=== PATIENT | male | born 1935 | race African-American/Black ===

== ENCOUNTER 2018-06-21 14:10 | Emergency (ER) | payer MEDICARE, OTHER | END 2018-06-21 18:51 | disposition home or self-care (01) | LOC: ERS 14:10 | DX: S20.212A Contusion of left front wall of thorax, initial encounter (principal); S20.211A Contusion of right front wall of thorax, initial encounter; S40.012A Contusion of left shoulder, initial encounter; E03.9 Hypothyroidism, unspecified; I10 Essential (primary) hypertension; Z79.899 Other long term (current) drug therapy; W19.XXXA Unspecified fall, initial encounter | CPT/HCPCS: 99283 ==

== ENCOUNTER 2018-10-16 06:34 | Inpatient (IN) | payer MEDICARE, OTHER ==
[2018-10-16] MEDS ORDERED: Norepinephrine 8 MG/0.9% NS 250 ML ONE (06:55)
[2018-10-16] MEDS ORDERED: Sodium Bicarb 50 MEQ/50 ML VIAL ONE (07:06)
[2018-10-16] MEDS ORDERED: levETIRAcetam In NaCl (Iso-Os) 1,000 MG in Premix Bag 1 BAG IVPB SCH (07:15)
[2018-10-16] MEDS ORDERED: Magnesium 2 GM/50 ML BAG (IN WATER) ONE (07:20)
[2018-10-16 07:58] LABS: INR-International Normal Ratio 1.6; Prothrombin Time 19.2 SEC (12.0-14.7)
[2018-10-16 07:59] LABS: PTT 51.5 SEC (22.9-36.1)
[2018-10-16 08:04] LABS: ALT (SGPT) 162 U/L (8-55); AST (SGOT) 144 U/L (5-34); Albumin 2.1 g/dL (3.4-4.8); Alkaline Phosphatase 60 U/L (40-150); Anion Gap 21 mmol/L (10-20); BUN (Urea Nitrogen) 37 mg/dL (8.4-25.7); Bilirubin, Total 0.3 mg/dL (0.2-1.2); CK (CPK) 83 U/L (30-200); Calc. Creatinine Clearance 0 mL/min (70-130); Carbon Dioxide 18 mmol/L (23-31); Chloride 116 mmol/L (98-107); Estimated GFR-MDRD 66; Globulin 1.9 g/dL (2.4-3.5); Glucose 126 mg/dL (83-110); Lipase 34 U/L (8-78); Potassium 4.1 mmol/L (3.5-5.1); Sodium 151 mmol/L (136-145)
[2018-10-16 08:25] LABS: CKMB 3.6 ng/mL (0-6.6)
[2018-10-16 09:23] LABS: Hemoglobin 10.3 g/dL (14.0-18.0); Mean Corpuscular HGB CONC 31.8 g/dL (32.0-36.0); Mean Corpuscular Hemoglobin 32.8 pg (27.0-31.0); Mean Platelet Volume 8.4 fL (7.4-10.4); Platelet Count 103 thou/uL (130-400); RBC Distribution Width 12.4 % (11.5-14.5); Red Blood Cell (RBC) Count 3.15 mill/uL (4.70-6.10); White Blood Cell (WBC) Count 6.6 thou/uL (4.8-10.8)
[2018-10-16 09:31] LABS: Actual Bicarbonate (HCO3a) 20.6 mEq/L (22-28); Base Excess (BEa) -3.9 mEq/L (-2.0 to +3.0); CO2 Tension 35.4 mmHg (35.0-45.0); Calcium, Ionized 1.42 mmol/L (1.12-1.30); Carboxyhemoglobin (COHb) 0.1 gm% (0.0-3.0); O2 Tension (PaO2) 364.9 mmHg (> 60.0); Potassium - ABG Lab 3.86 mmol/L (3.70-5.30); Puncture Site RRA; pH, Arterial 7.38 (7.35-7.45)
[2018-10-16] MEDS ORDERED: Ondansetron ODT 4 MG TAB SL PRN (09:32)
[2018-10-16] MEDS ORDERED: Ondansetron PF 4 MG/2 ML Vial IVP PRN ×2 (09:32→13:00)
[2018-10-16] MEDS ORDERED: Norepinephrine 8 MG/250 ML BAG IVPB PRN (09:34)
--- NOTE | 2018-10-16 09:37 | RAD ---
CHEST 1 VIEW: HISTORY: Altered mental status. Dyspnea. COMPARISON: 05/14/2017. FINDINGS: Cardiac silhouette is magnified and enlarged. Pulmonary vasculature is engorged. Bilateral upper lo be infiltrate, right worse than left. The patient is slightly rotated rightward. Calcification with in the arterial structures. The tip of an endotracheal catheter overlies the thoracic inlet. No evidence of pneumothorax. Cardi ac monitor leads overlie the chest. IMPRESSION: 1. Bilateral upper lobe infiltrates, right greater than left. Clinical correlation regarding other signs and symptoms of right upper lobe pneumonitis is required. Please consider continued radiograph ic followup. 2. Endotracheal catheter is in good radiographic position. 3. Cardiomegaly. POS: [facility]
[2018-10-16 09:47] LABS: #Eosinphils 0.1 thou/uL (0.0-0.7); #Lymphocytes 1.8 thou/uL (1.20-3.40); #Monocytes 0.1 thou/uL (0.11-0.59); #Neutrophils 4.5 thou/uL (1.40-6.50); %Basophils 0.3 % (0.0-1.0); %Eosinophils 1.4 % (0.0-10.0); %Lymphocytes 27.8 % (21.0-51.0); %Monocytes 1.8 % (0.0-10.0); %Neutrophils 68.8 % (42.0-75.0); Band 1 % (5-11); Eosinophils 2 % (0-10); Lymphocytes 23 % (21-51); MDiff Complete? YES; Macrocytosis SLIGHT = 6-15 cells (100X) (0-5/hpf); Monocytes 5 % (0-10); Neutrophil 66 % (42-75); PLT Morphology Comment Appears Decreased; Polychromasia SLIGHT = 2-3 cells (100X) (0-2/hpf); RBC Morphology Normal; Reactive Lymphocytes 3 % (0-10)
[2018-10-16 09:55] VITALS: BMI 18.7
--- NOTE | 2018-10-16 11:00 | CT ---
NONCONTRAST CT HEAD: DATE: 10/16/2018. HISTORY: Altered mental status. Cardiac arrest and CPR in progress. The patient had a witnessed seizure this morning. COMPARISON: 07/26/2008. FINDINGS: There is no evidence of acute infarction, hemorrhage, mass effect, or midline shift. Aptel-white diff erentiation does persist. There is a low-density focus in the anterior aspect left basal ganglia lik olivia attributable to a lacunar infarction of indeterminate age. There is mild cerebral volume loss. The ventricular system is normal size, shape, and position. There are gas densities seen within the region of the cavernous sinus bilaterally which may be relate d to gas within venous structures due to placement of a peripheral intravenous catheter. However, th ere is also gas in the region of the unemployment benefits claims taker space on the right with focus of gas within the poste rior aspect of the left orbit. The exact etiology for gas densities in these regions is uncertain bu t could be related to gas within vessels due to placement of peripheral intravenous catheter possibly secondary to recent CPR. No obvious fractures are visualized to account for gas. Trace mucosal thickening is seen in the ethmoidal air cells. Mastoid air cells are clear. IMPRESSION: 1. No acute intracranial abnormality is demonstrated. 2. Scattered gas densities as described above which may be related to gas within the venous structur es due to placement of peripheral intravenous catheter. However, gas densities from barotrauma given recent CPR is a possibility or a combination of each of these entities. No fracture is seen. 3. The above findings were discussed with Dr. Wade in the emergency department on 10/16/2018 at 085 9 hours. CODE CR POS: [facility]
[2018-10-16] MEDS ORDERED: Acetaminophen 325 MG TAB PO PRN (13:00)
[2018-10-16] MEDS ORDERED: Acetaminophen 650 MG Suppository PR PRN (13:00)
[2018-10-16] MEDS ORDERED: Bisacodyl 10 MG SUPP PR PRN (13:00)
[2018-10-16] MEDS: Sodium Chloride 0.45% 1,000 ML IV SCH ×2 (14:33→15:06)
--- NOTE | 2018-10-16 14:37 | CON ---
DATE OF CONSULTATION: 10/16/2018 SERVICE: Pulmonary Medicine. REASON FOR CONSULTATION: ICU patient. HISTORY OF PRESENT ILLNESS: The patient is an 82-year-old male with past medical history significant for an extensive seizure history. He was in his usual state of health until he had an abrupt onset of seizure. As this is typical, the patient's put a cold rag on the patient's face. Typically, these things end pretty quickly. Ultimately, the seizure persisted. Once the seizure activity finally stopped, the patient was completely unresponsive. He was not breathing. She called Emergency Services, and when they got there, the patient was in a PEA arrest. Chest compressions were initiated. He was subsequently brought to the emergency department, where he lost pulse on at least 4 separate occasions. He had over an hour of chest compressions. They were about to call the code. When they discontinued interventions, he had a pulse. They watched him for over an hour and he seemed to strengthen up a little bit, so he was transitioned to the ICU. The patient's is very clear about the patient not wanting intubation and chest compressions. That being said, now this has occurred, she would like an additional 24 hours to see what happens. I think that is perfectly reasonable at this point. The patient cannot provide me any additional elements of the history, and before this event occurred, was told that he was in his usual state. PAST MEDICAL HISTORY: 1. Hypertension. 2. Dyslipidemia. 3. Hypothyroidism. 4. Chronic heart failure. 5. Seizure disorder. PAST SURGICAL HISTORY: Unknown. FAMILY HISTORY: Noncontributory. SOCIAL HISTORY: The patient previously denied drinking or smoking. Otherwise, it is unknown. ALLERGIES: NO KNOWN DRUG ALLERGIES. MEDICATIONS: List of his inpatient medications was reviewed. Couple of small updates was made. REVIEW OF SYSTEMS: This cannot be obtained as the patient is currently comatose. PHYSICAL EXAMINATION: VITAL SIGNS: Afebrile. Pulse 55, blood pressure 124/63, respirations 22, saturation 97% on 37% FiO2 and a PEEP of 5. HEENT: Normocephalic and atraumatic. Sclerae white. Conjunctivae pink. Oral mucosa is moist without lesions. LUNGS: Excellent air entry. Rhonchi and crackles are both present. There is no prolonged expiratory phase or wheezing appreciated. HEART: Normal rate and regular. ABDOMEN: Soft, nontender, and nondistended. Bowel sounds are positive. MUSCULOSKELETAL: No cyanosis or clubbing. There is no pitting in the bilateral lower extremities. NEUROLOGIC: His pupils are equal, round, and reactive. He has a left upward gaze preference. He does not attend. He does not follow any commands. He is overbreathing the ventilator comfortably. He does not have any cough or gag with deep suctioning. Noxious stimuli to the bilateral upper and lower extremities elicits essentially no response. There is no clonus. Babinski's is neutral bilaterally. He is demonstrating myoclonic jerking movements where he randomly opens up his eyes and his entire body contracts. LABORATORY DATA: WBC 6.6, hemoglobin 10.3, and platelets 103,000. INR 1.6. Creatinine 1.27, BUN 37, and anion gap 21. Sodium 151, AST and ALT are elevated. Troponin 0.076. BNP 1653. IMAGING STUDIES: Chest x-ray demonstrates endotracheal tube is in good position. Right upper lobe infiltrate is noted. Otherwise, I do not see any acute cardiopulmonary abnormality. No pneumothorax is noted. CT of the brain demonstrates no acute intracranial abnormality. Scattered gas is present in the carpenter assistant space. ASSESSMENT: 1. PEA arrest, status post prolonged CPR with spontaneous return of circulation. 2. Seizure. 3. Anoxic brain injury. 4. Chronic systolic heart failure. 5. Shock liver. 6. Hypernatremia. 7. App-QC-vuhuhwmje myocardial infarction. 8. Anemia. DISCUSSION AND PLAN: We will support the patient on mechanical ventilation overnight. If he fails to make any significant neurologic recovery, the patient's was very clear that the patient would not want CPR or any significant intubation. As such, we will likely be transitioning over to comfort care only in 24 to 48 hours. I will treat him for community-acquired pneumonia given his right upper lobe density. Pulmonary/Critical Care will continue to follow very closely. CRITICAL CARE TIME: 30 minutes. Job ID: [id number]
[2018-10-16] MEDS: Piperacillin/Tazobactam 2.25 GM in Sodium Chloride 0.9% 100 ML IVPB SCH ×2 (14:45→20:02)
--- NOTE | 2018-10-16 18:50 | HP ---
PRIMARY CARE PROVIDER: Unknown. CHIEF COMPLAINT: Pulseless electrical activity. HISTORY OF PRESENT ILLNESS: Mr. Villalobos is an 82-year-old gentleman who was seen at [facility] on October 16, 2018. Patient is currently intubated and mechanically ventilated, unable to provide any history. Collateral history was obtained from patient's family, review of medical records, and discussion with emergency room physician. Patient has a history of seizure disorder. He had seizure earlier today. The seizure did not resolve with the measures that usually stop the seizure. Following the seizure activity, patient went unresponsive. EMS was called and patient was found to be in pulseless electrical activity. Resuscitation was initiated and patient was brought to the emergency room. He continued to have CPR in the emergency room. The code was about to be stopped when patient had a pulse. He was referred to hospitalist service for admission to the hospital. I had a lengthy discussion with the patient's family. Patient's family members, including his reported that patient would not have wanted CPR or mechanical ventilation. She also reported that he would not have wanted vasopressors, but he is agreeable to continuing the vasopressors for now as long as the dose is not increased. REVIEW OF SYSTEMS: Could not be completed secondary to patient's nonverbal status. PAST MEDICAL HISTORY: 1. Hypertension. 2. Dyslipidemia. 3. Hypothyroidism. 4. Seizure disorder. 5. Congestive heart failure. SURGICAL HISTORY: Unknown. FAMILY HISTORY: Unknown. SOCIAL HISTORY: Family reports that patient does not use tobacco, alcohol, or recreational drug use. ALLERGIES: NO KNOWN DRUG ALLERGIES. CURRENT MEDICATIONS: The family does not know the names of his current medications: This will need to be reviewed. PHYSICAL EXAMINATION: GENERAL: Mr. Villalobos is intubated and mechanically ventilated. VITAL SIGNS: Blood pressure is 109/67, pulse 47, respiratory rate 22, oxygen saturation 100%, and temperature is 93.5 degrees Fahrenheit. EYES: No scleral icterus, no conjunctival pallor. ENT: Patient has endotracheal tube in place. RESPIRATORY: Accessory muscles of breathing are not active. Chest wall movements are symmetric bilaterally. Lung examination reveals right upper lobe bronchial breathing. CARDIOVASCULAR: S1 and S2 are heard, regular. Peripheral pulses palpable. No pericardial rub. ABDOMEN: Soft, nontender, bowel sounds heard. NEUROLOGIC: Full neurologic examination was not possible secondary to patient's noncooperation. Pupils are approximately 4 mm bilaterally, sluggishly reactive to light. No facial droop. No spontaneous limb movements at this time. Plantar reflexes equivocal, deep tendon reflexes 2+. MUSCULOSKELETAL: No spontaneous limb movements. LYMPHATIC: No cervical lymphadenopathy. SKIN: No rashes or subcutaneous nodules. PSYCHIATRIC: Unable to assess mood, affect, or orientation to person, place, or time. LABORATORY DATA: Mr. Villalobos's labs and investigations were reviewed. I reviewed his chest x-ray, which shows bilateral upper lobe infiltrates. I also reviewed his electrocardiogram, which shows wide QRS complexes. He has normal white count, macrocytic anemia with hemoglobin 10.3, thrombocytopenia with platelet count of 103,000. INR 1.6. Elevated sodium of 151, normal potassium, normal creatinine, elevated anion gap of 21, elevated AST of 144, and elevated ALT of 162. Indeterminate troponin-I of 0.076 and elevated BNP of 1653. Normal lipase. Arterial blood gases show pH 7.38, pCO2 is 35.4, and PO2 is 364.9. ASSESSMENT AND PLAN: Mr. Villalobos is an 82-year-old gentleman who was seen at [facility] on October 16, 2018. His problem list includes: 1. Cardiac arrest: Mr. Villalobos presented to the emergency room with cardiac arrest following a seizure. He had prolonged cardiopulmonary resuscitation with return of spontaneous circulation. He is being admitted to critical care unit for further management. 2. Pneumonia: Mr. Villalobos is presenting with right upper lobe pneumonia. We will treat him with antibiotics. 3. Hypertension: Mr. Villalobos was initially hypotensive, he has subsequently regained his blood pressure. We will continue to monitor vital signs in the critical care setting. 4. Seizure disorder: We will start the patient on seizure precautions. We will resume his home medications once clarified. Patient's family is aware that patient's prognosis is poor. They do not want any further attempts at the cardiopulmonary resuscitation or going up on vasopressor doses. We will honor their wishes accordingly. LEVEL OF RISK: High. LEVEL OF COMPLEXITY: High. Job ID: [id number]
[2018-10-16] MEDS ORDERED: Morphine 2 MG/ML SYRINGE SLOW IVP PRN (19:21)
[2018-10-16] MEDS ORDERED: Propofol BOLUS 1,000 MG/100 ML VIAL IV PRN (19:21)
[2018-10-16] MEDS ORDERED: DISCONTINUE PREVIOUS NARCOTIC PAIN MEDICATIONS AND BENZODIAZEPINES FS SCH (19:21)
[2018-10-16] MEDS ORDERED: Lorazepam 2 MG/ML VIAL SLOW IVP PRN (19:21)
[2018-10-16] MEDS ORDERED: fentaNYL Citrate/PF 2,000 MCG in Sodium Chloride 0.9% 60 ML IV SCH (19:21)
[2018-10-16] MEDS ORDERED: Propofol 1,000 MG/100 ML VIAL IV PRN (19:21)
[2018-10-16] MEDS ORDERED: Fentanyl BOLUS 250 ML IVPB PRN (19:21)
[2018-10-16] MEDS ORDERED: Famotidine/PF 20 mg/2ml Vial SLOW IVP SCH (21:00)
[2018-10-17] MEDS: Piperacillin/Tazobactam 2.25 GM in Sodium Chloride 0.9% 100 ML IVPB SCH ×4 (04:37→19:58)
[2018-10-17 05:02] LABS: #Lymphocytes 1.6 thou/uL (1.20-3.40); #Monocytes 1.2 thou/uL (0.11-0.59); #Neutrophils 10.2 thou/uL (1.40-6.50); %Eosinophils 0.2 % (0.0-10.0); %Lymphocytes 12.4 % (21.0-51.0); %Monocytes 9.4 % (0.0-10.0); %Neutrophils 77.9 % (42.0-75.0); Hemoglobin 10.3 g/dL (14.0-18.0); Mean Corpuscular HGB CONC 32.8 g/dL (32.0-36.0); Mean Corpuscular Hemoglobin 33.3 pg (27.0-31.0); Mean Platelet Volume 8.5 fL (7.4-10.4); Platelet Count 114 thou/uL (130-400); RBC Distribution Width 12.6 % (11.5-14.5); White Blood Cell (WBC) Count 13.1 thou/uL (4.8-10.8)
[2018-10-17 05:39] LABS: Anion Gap 17 mmol/L (10-20); BUN (Urea Nitrogen) 58 mg/dL (8.4-25.7); Calc. Creatinine Clearance 16 mL/min (70-130); Calcium 9.6 mg/dL (7.8-10.44); Carbon Dioxide 23 mmol/L (23-31); Chloride 114 mmol/L (98-107); Estimated GFR-MDRD 28; Glucose 129 mg/dL (83-110); Potassium 3.9 mmol/L (3.5-5.1); Sodium 150 mmol/L (136-145)
[2018-10-17] MEDS ORDERED: Sodium Chloride 0.65% Nasal 44 ML BOT EA NARE PRN (08:25)
[2018-10-17] MEDS ORDERED: Eucerin (Mineral Oil/Petrolatum,White) 30 gm Jar TOP PRN (08:25)
[2018-10-17] MEDS ORDERED: hydrALAZINE 20 MG/ML VIAL SLOW IVP PRN (08:25)
[2018-10-17] MEDS ORDERED: Artificial Tears 18 DROP/0.9 ML EA EYE PRN (08:25)
--- NOTE | 2018-10-17 08:50 | PRG ---
DATE OF SERVICE: This is 35 minutes critical care time. SUBJECTIVE: The patient remains intubated on mechanical ventilation. Neurologically, he will not wake up or follow commands. OBJECTIVE: HEENT: His eyes are deviated upward with poor pupillary response. Sclera injected. NECK: No adenopathy or JVD. LUNGS: Clear anteriorly. CARDIOVASCULAR: S1 and S2. Slightly tachycardic without murmur. ABDOMEN: Soft and nontender. EXTREMITIES: Without clubbing, cyanosis, or edema. LABORATORY DATA: White blood cell count 13.1, hematocrit 31.5, platelet count 114. Sodium 150, potassium 3.9, chloride 114, CO2 of 23, BUN 58, creatinine 2.6, glucose 129. ASSESSMENT: 1. Status post prolonged and multiple cardiopulmonary arrests with return of spontaneous circulation. 2. Prolonged seizure. 3. Probable anoxic brain injury. 4. Chronic systolic heart failure. 5. Acute kidney injury. 6. Shock liver. 7. Hypernatremia. 8. Non ST-segment myocardial infarction. PLAN: So far we have not seen any improvement in the patient's neurologic status. The patient's family states that he has a do not attempt resuscitation order in place. Their plan was to give this 24 hours and then consider withdrawal of care. In the meantime, I do not see any acute interventions that require being addressed at this time. In case they do decide to push along with care, I think his hypernatremia needs to be treated with more free water. He is continuing with antibiotics for aspiration coverage. Again, his prognosis is quite poor. Job ID: [id number]
[2018-10-17] MEDS: Famotidine/PF 20 mg/2ml Vial SLOW IVP SCH (08:52)
[2018-10-17] MEDS: Sodium Chloride 0.45% 1,000 ML IV SCH (09:22)
--- NOTE | 2018-10-17 11:34 | PDOC.PN ---
- Subjective Encounter Start Date: 10/17/18 Encounter Start Time: 08:30 -: old records requested/rev Patient seen and examined. No overnight events pt is on vent, unresponsive, bedside - Objective Resuscitation Status - Order Detail: 10/16/18 10:05 Resuscitation Status Routine Resuscitation Status: DNAR: NO Resuscitation Discussed with: DANIEL Reviewed: Yes Vital Signs & Weight: Vital Signs (12 hours) Temp Pulse Resp BP Pulse Ox 10/17/18 10:24 103 H 150/76 H 10/17/18 10:00 14 10/17/18 08:00 97.6 F 13 100 10/17/18 06:40 102 H 148/72 H 10/17/18 06:00 13 10/17/18 04:00 99.4 F 13 10/17/18 03:03 79 10/17/18 02:00 20 10/17/18 00:00 99.9 F H 18 Weight Weight 115 lb 14.4 oz Most Recent Monitor Data Heart Rate from ECG 105 NIBP 151/73 NIBP BP-Mean 99 Respiration from ECG 18 SpO2 100 I&O: 10/16/18 10/17/18 10/18/18 06:59 06:59 06:59 Intake Total 1202 Output Total 415 10 Balance 787 -10 Result Diagrams: 10/17/18 04:55 10/17/18 04:55 Radiology Reviewed by me: Yes (CT brain and chest xray reviwed) EKG Reviewed by me: Yes (nsr) Phys Exam - Physical Examination Constitutional: NAD on vent Neck: no JVD, supple Respiratory: no wheezing, no rales, no rhonchi Cardiovascular: RRR, no significant murmur, no rub Gastrointestinal: soft, no distention, positive bowel sounds Musculoskeletal: no edema, pulses present unresponsive Lymphatic: no nodes Deviation from normal: unresponsive Skin: no rash, normal turgor Dx/Plan (1) PEA (Pulseless electrical activity) Code(s): I46.9 - CARDIAC ARREST, CAUSE UNSPECIFIED Status: Acute (2) Cardiac arrest Code(s): I46.9 - CARDIAC ARREST, CAUSE UNSPECIFIED Status: Acute (3) Anoxic brain injury Status: Acute (4) Acute kidney failure Status: Acute (5) NSTEMI (non-ST elevated myocardial infarction) Code(s): I21.4 - NON-ST ELEVATION (NSTEMI) MYOCARDIAL INFARCTION Status: Acute (6) Shock liver Code(s): K72.00 - ACUTE AND SUBACUTE HEPATIC FAILURE WITHOUT COMA Status: Acute (7) Hypernatremia Code(s): E87.0 - HYPEROSMOLALITY AND HYPERNATREMIA Status: Acute (8) HTN (hypertension) Code(s): I10 - ESSENTIAL (PRIMARY) HYPERTENSION Status: Chronic (9) Hyperlipidemia Code(s): E78.5 - HYPERLIPIDEMIA, UNSPECIFIED Status: Chronic (10) Hypothyroidism Code(s): E03.9 - HYPOTHYROIDISM, UNSPECIFIED Status: Chronic (11) Macrocytic anemia Code(s): D53.9 - NUTRITIONAL ANEMIA, UNSPECIFIED Status: Chronic (12) Seizure disorder Code(s): G40.909 - EPILEPSY, UNSP, NOT INTRACTABLE, WITHOUT STATUS EPILEPTICUS Status: Chronic (13) Chronic systolic heart failure, ACC/AHA stage C Code(s): I50.22 - CHRONIC SYSTOLIC (CONGESTIVE) HEART FAILURE Status: Acute - Plan cont current plan of care, plan discussed w/ family * spoke with and discussed with her about goal of care and she does not want any aggressive intervention * she will decide about withdrawal of care in next 24-48 hours * she has decided about DNR * medication reviewed as below * symptomatic treatment. * palliative care on case * meanwhile continue supportive care * his prognosis is very poor Review of Systems - Review of Systems Other: unable to review as pt is unresponsive - Medications/Allergies Allergies/Adverse Reactions: Allergies Allergy/AdvReac Type Severity Reaction Status Date / Time No Known Allergies Allergy Verified 05/14/17 22:39 Medications: Current Medications Acetaminophen (Tylenol) 650 mg PO Q4H PRN PRN Reason: Headache/Fever/Mild Pain (1-3) Last Admin: 10/17/18 05:13 Dose: 650 mg Acetaminophen (Tylenol) 650 mg [place] Q4H PRN PRN Reason: Headache/Fever/Mild Pain (1-3) Artificial Tears (Tears Naturale) 2 drop EA EYE PRN PRN PRN Reason: Dry Eyes Bisacodyl (Dulcolax) 10 mg [place] DAILYPRN PRN PRN Reason: Constipation Famotidine (Pepcid) 20 mg SLOW IVP DAILY [facility] Last Admin: 10/17/18 08:52 Dose: 20 mg Hydralazine HCl (Apresoline) 10 mg SLOW IVP Q4H PRN PRN Reason: SBP > 180 and HR < 70 Piperacillin Sod/Tazobactam (Sod 2.25 gm/ Sodium Chloride) 100 mls @ 200 mls/ hr IVPB 0400,0800,1400,2000 [facility] Last Admin: 10/17/18 08:51 Dose: 100 mls Fentanyl Citrate 2,000 mcg/ (Sodium Chloride) 100 mls @ 0 mls/hr IV INF [facility]; Protocol Stop: 11/15/18 19:21 Fentanyl Citrate (Fentanyl Bolus) 250 mls @ 0 mls/hr IVPB PRN PRN PRN Reason: Breakthrough pain/agitation Stop: 11/15/18 19:21 Sodium Chloride (1/2 Normal Saline) 1,000 mls @ 75 mls/hr IV .[id number] [facility] Last Admin: 10/17/18 09:22 Dose: 1,000 mls Lorazepam (Ativan) 2 mg SLOW IVP Q1H PRN PRN Reason: Breakthrough agitation Stop: 11/15/18 19:21 Last Admin: 10/16/18 19:58 Dose: 2 mg Mineral Oil/White Petrolatum (Eucerin Cream) 0 gm TOP BIDPRN PRN PRN Reason: Dry Skin Morphine Sulfate (Morphine) 2 mg SLOW IVP Q1H PRN PRN Reason: BREAKTHROUGH PAIN/Agitation Stop: 11/15/18 19:21 Discontinue Previous Narcotic Pain Medications And Benzodiazepines 1 each FS .ONE [facility] Stop: 11/15/18 19:21 Ondansetron HCl (Zofran) 4 mg IVP Q6H PRN PRN Reason: Nausea/Vomiting Propofol (Diprivan) 1,000 mg IV INF PRN; Protocol PRN Reason: TO ACHIEVE GOAL RASS Stop: 11/15/18 19:21 Propofol (Diprivan Bolus) 20 mg IV Q5MIN PRN PRN Reason: BREAKTHROUGH AGITATION Stop: 11/15/18 19:21 Sodium Chloride (Flush - Normal Saline) 10 ml IVF PRN PRN PRN Reason: Saline Flush Sodium Chloride ([place] Nasal [place] 0.65%) 0 ml EA NARE QIDPRN PRN PRN Reason: Nasal Congestion
[2018-10-18] MEDS: Sodium Chloride 0.45% 1,000 ML IV SCH ×2 (04:03→07:30)
[2018-10-18] MEDS: Piperacillin/Tazobactam 2.25 GM in Sodium Chloride 0.9% 100 ML IVPB SCH ×4 (04:18→19:48)
[2018-10-18 06:57] LABS: Anion Gap 21 mmol/L (10-20); BUN (Urea Nitrogen) 78 mg/dL (8.4-25.7); Calc. Creatinine Clearance 11 mL/min (70-130); Calcium 8.2 mg/dL (7.8-10.44); Carbon Dioxide 19 mmol/L (23-31); Chloride 113 mmol/L (98-107); Estimated GFR-MDRD 18; Glucose 110 mg/dL (83-110); Potassium 4.7 mmol/L (3.5-5.1); Sodium 148 mmol/L (136-145)
[2018-10-18 08:16] LABS: #Lymphocytes 1.8 thou/uL (1.20-3.40); #Monocytes 1.4 thou/uL (0.11-0.59); #Neutrophils 9.5 thou/uL (1.40-6.50); %Basophils 0.1 % (0.0-1.0); %Eosinophils 0.1 % (0.0-10.0); %Lymphocytes 13.9 % (21.0-51.0); %Monocytes 11.1 % (0.0-10.0); %Neutrophils 74.7 % (42.0-75.0); Hemoglobin 9.1 g/dL (14.0-18.0); Mean Corpuscular HGB CONC 34.6 g/dL (32.0-36.0); Mean Corpuscular Hemoglobin 35.2 pg (27.0-31.0); Mean Platelet Volume 8.8 fL (7.4-10.4); Platelet Count 106 thou/uL (130-400); RBC Distribution Width 12.7 % (11.5-14.5); White Blood Cell (WBC) Count 12.8 thou/uL (4.8-10.8)
--- NOTE | 2018-10-18 09:07 | PRG ---
DATE OF SERVICE: SUBJECTIVE: José Miguel Villalobos was extubated yesterday for comfort measures, now is unresponsive. He has extensive rhonchi and wheezing bilaterally. He was status post prolonged CPR with prolonged seizure activity and anoxic injury. He is unresponsive. OBJECTIVE: VITAL SIGNS: Blood pressure 157/71, heart rate 92, sats 100% on 3 L, respirations 30. CHEST: With extensive rhonchi and wheezing. CARDIAC: Normal S1, S2. No gallops. ABDOMEN: No masses. LABORATORY DATA: Creatinine is 3.91, BUN is 78. White count 12,000. IMPRESSION: 1. Anoxic injury. 2. Status post prolonged CPR. 3. Renal failure. PLAN: Comfort care. He is a DNR, can be transferred out of the ICU once bed is available. Job ID: [id number]
--- NOTE | 2018-10-18 09:48 | PDOC.PN ---
- Subjective Encounter Start Date: 10/18/18 Encounter Start Time: 08:20 -: old records requested/rev Patient seen and examined. pt is terminally extubated for comfort care. No overnight events - Objective Resuscitation Status - Order Detail: 10/16/18 10:05 Resuscitation Status Routine Resuscitation Status: DNAR: NO Resuscitation Discussed with: DANIEL Reviewed: Yes Vital Signs & Weight: Vital Signs (12 hours) Temp Resp 10/18/18 04:00 98.6 F 10/18/18 00:00 99.9 F H 18 10/17/18 22:00 13 Weight Admit Weight 115 lb Weight 115 lb 14.4 oz Most Recent Monitor Data Heart Rate from ECG 83 NIBP 141/66 NIBP BP-Mean 91 Respiration from ECG 30 SpO2 97 I&O: 10/17/18 10/18/18 10/19/18 06:59 06:59 06:59 Intake Total 1202 3173 Output Total 415 538 Balance 787 2635 Result Diagrams: 10/18/18 07:42 10/18/18 06:02 Phys Exam - Physical Examination Constitutional: NAD HEENT: PERRLA, sclera anicteric dry MM Neck: no JVD, supple Respiratory: no wheezing, no rales, no rhonchi Cardiovascular: RRR, no significant murmur, no rub Gastrointestinal: soft, no distention, positive bowel sounds Musculoskeletal: no edema, pulses present unresponsive Lymphatic: no nodes Deviation from normal: unresponsive Skin: no rash, normal turgor Dx/Plan (1) PEA (Pulseless electrical activity) Code(s): I46.9 - CARDIAC ARREST, CAUSE UNSPECIFIED Status: Acute (2) Cardiac arrest Code(s): I46.9 - CARDIAC ARREST, CAUSE UNSPECIFIED Status: Acute (3) Anoxic brain injury Status: Acute (4) Acute kidney failure Status: Acute (5) NSTEMI (non-ST elevated myocardial infarction) Code(s): I21.4 - NON-ST ELEVATION (NSTEMI) MYOCARDIAL INFARCTION Status: Acute (6) Shock liver Code(s): K72.00 - ACUTE AND SUBACUTE HEPATIC FAILURE WITHOUT COMA Status: Acute (7) Hypernatremia Code(s): E87.0 - HYPEROSMOLALITY AND HYPERNATREMIA Status: Acute (8) HTN (hypertension) Code(s): I10 - ESSENTIAL (PRIMARY) HYPERTENSION Status: Chronic (9) Hyperlipidemia Code(s): E78.5 - HYPERLIPIDEMIA, UNSPECIFIED Status: Chronic (10) Hypothyroidism Code(s): E03.9 - HYPOTHYROIDISM, UNSPECIFIED Status: Chronic (11) Macrocytic anemia Code(s): D53.9 - NUTRITIONAL ANEMIA, UNSPECIFIED Status: Chronic (12) Seizure disorder Code(s): G40.909 - EPILEPSY, UNSP, NOT INTRACTABLE, WITHOUT STATUS EPILEPTICUS Status: Chronic (13) Chronic systolic heart failure, ACC/AHA stage C Code(s): I50.22 - CHRONIC SYSTOLIC (CONGESTIVE) HEART FAILURE Status: Acute - Plan cont current plan of care * transfer to medical floor * consider inpt hospice transfer * medication reviewed as below * symptomatic treatment * prognosis is poor * comfort care. Review of Systems - Review of Systems Other: unable to review due to unresponsive - Medications/Allergies Allergies/Adverse Reactions: Allergies Allergy/AdvReac Type Severity Reaction Status Date / Time No Known Allergies Allergy Verified 05/14/17 22:39 Medications: Current Medications Acetaminophen (Tylenol) 650 mg PO Q4H PRN PRN Reason: Headache/Fever/Mild Pain (1-3) Last Admin: 10/17/18 05:13 Dose: 650 mg Acetaminophen (Tylenol) 650 mg ND Q4H PRN PRN Reason: Headache/Fever/Mild Pain (1-3) Artificial Tears (Tears Naturale) 2 drop EA EYE PRN PRN PRN Reason: Dry Eyes Bisacodyl (Dulcolax) 10 mg ND DAILYPRN PRN PRN Reason: Constipation Famotidine (Pepcid) 20 mg SLOW IVP DAILY [facility] Last Admin: 10/17/18 08:52 Dose: 20 mg Hydralazine HCl (Apresoline) 10 mg SLOW IVP Q4H PRN PRN Reason: SBP > 180 and HR < 70 Piperacillin Sod/Tazobactam (Sod 2.25 gm/ Sodium Chloride) 100 mls @ 200 mls/ hr IVPB 0400,0800,1400,2000 [facility] Last Admin: 10/18/18 07:16 Dose: 100 mls Fentanyl Citrate 2,000 mcg/ (Sodium Chloride) 100 mls @ 0 mls/hr IV INF JORDI; Protocol Stop: 11/15/18 19:21 Fentanyl Citrate (Fentanyl Bolus) 250 mls @ 0 mls/hr IVPB PRN PRN PRN Reason: Breakthrough pain/agitation Stop: 11/15/18 19:21 Sodium Chloride (1/2 Normal Saline) 1,000 mls @ 75 mls/hr IV .[id number] [facility] Last Admin: 10/18/18 07:30 Dose: 1,000 mls Lorazepam (Ativan) 2 mg SLOW IVP Q1H PRN PRN Reason: Breakthrough agitation Stop: 11/15/18 19:21 Last Admin: 10/16/18 19:58 Dose: 2 mg Mineral Oil/White Petrolatum (Eucerin Cream) 0 gm TOP BIDPRN PRN PRN Reason: Dry Skin Morphine Sulfate (Morphine) 2 mg SLOW IVP Q1H PRN PRN Reason: BREAKTHROUGH PAIN/Agitation Stop: 11/15/18 19:21 Discontinue Previous Narcotic Pain Medications And Benzodiazepines 1 each FS .ONE [facility] Stop: 11/15/18 19:21 Ondansetron HCl (Zofran) 4 mg IVP Q6H PRN PRN Reason: Nausea/Vomiting Propofol (Diprivan) 1,000 mg IV INF PRN; Protocol PRN Reason: TO ACHIEVE GOAL RASS Stop: 11/15/18 19:21 Propofol (Diprivan Bolus) 20 mg IV Q5MIN PRN PRN Reason: BREAKTHROUGH AGITATION Stop: 11/15/18 19:21 Sodium Chloride (Flush - Normal Saline) 10 ml IVF PRN PRN PRN Reason: Saline Flush Sodium Chloride ([place] Nasal [place] 0.65%) 0 ml EA NARE QIDPRN PRN PRN Reason: Nasal Congestion
[2018-10-18] MEDS: Famotidine/PF 20 mg/2ml Vial SLOW IVP SCH (09:53)
--- NOTE | 2018-10-18 16:54 | RAD ---
ABDOMEN ONE VIEW: CHEST ONE VIEW: 10/18/18 HISTORY: 82-year-old male with history of verified Dobhoff tube placement. KUB: Examination of the abdomen including up to the mid chest demonstrates cardiomegaly with some vascular congestion. No Dobhoff tube is noted in place. There is heterogeneous bone demineralization. IMPRESSION: Cardiomegaly. No Dobhoff tube is noted in place involving the abdomen or mid chest. CHEST ONE VIEW: 10/18/18 Supine view of the upper chest demonstrates considerable rotation to the right. The Dobhoff tube is c onfirmed to be in the neck and presumed hypopharynx. This needs to be pulled back and reinserted. IMPRESSION: Dobhoff tube is still within the neck presumed in the hypopharynx. Cardiomegaly with bilateral vascul ar congestion. Bone demineralization. POS: [facility]
--- NOTE | 2018-10-18 17:45 | RAD ---
PORTABLE SUPINE ABDOMINAL RADIOGRAPH 10/18/18 HISTORY: Evaluate Dobhoff feeding tube placement. COMPARISON: 10/18/18 at 1630 hours. FINDINGS: There has been interval placement of a Dobhoff feeding tube with the tip overlying the expected locat ion of the body of the stomach. Patient is rotated. The left lung base appears clear. There is accen tuation of bronchovascular markings on the right due to patient rotation, but there is atelectasis at the right lung base. However, infiltrate cannot be entirely excluded, but this would be better evalu ated with chest x-ray. Osteopenia is present. Bowel gas pattern is nonspecific. IMPRESSION: 1. Dobhoff feeding tube noted in place with tip overlying the expected location of body of the s tomach. 2. Increased density medial right lung base some of which is related to patient rotation, but in filtrate/pneumonia or aspiration pneumonitis cannot be excluded. Chest x-ray is recommended for furth er evaluation of this finding. POS: [facility]
[2018-10-19] MEDS: Sodium Chloride 0.45% 1,000 ML IV SCH ×3 (00:03→18:05)
[2018-10-19] MEDS: Piperacillin/Tazobactam 2.25 GM in Sodium Chloride 0.9% 100 ML IVPB SCH ×3 (04:00→12:44)
[2018-10-19 07:18] LABS: #Lymphocytes 1.7 thou/uL (1.20-3.40); #Monocytes 1.4 thou/uL (0.11-0.59); #Neutrophils 8.4 thou/uL (1.40-6.50); %Eosinophils 0.1 % (0.0-10.0); %Lymphocytes 14.4 % (21.0-51.0); %Monocytes 12.3 % (0.0-10.0); %Neutrophils 73.1 % (42.0-75.0); Hemoglobin 9.1 g/dL (14.0-18.0); Mean Corpuscular HGB CONC 34.8 g/dL (32.0-36.0); Mean Corpuscular Hemoglobin 35.1 pg (27.0-31.0); Mean Platelet Volume 9.5 fL (7.4-10.4); Platelet Count 91 thou/uL (130-400); RBC Distribution Width 12.5 % (11.5-14.5); Red Blood Cell (RBC) Count 2.59 mill/uL (4.70-6.10); White Blood Cell (WBC) Count 11.5 thou/uL (4.8-10.8)
[2018-10-19 07:37] LABS: Anion Gap 17 mmol/L (10-20); BUN (Urea Nitrogen) 95 mg/dL (8.4-25.7); Calc. Creatinine Clearance 10 mL/min (70-130); Calcium 7.8 mg/dL (7.8-10.44); Carbon Dioxide 19 mmol/L (23-31); Chloride 117 mmol/L (98-107); Estimated GFR-MDRD 16; Glucose 145 mg/dL (83-110); Potassium 3.8 mmol/L (3.5-5.1); Sodium 149 mmol/L (136-145)
[2018-10-19] MEDS: Famotidine/PF 20 mg/2ml Vial SLOW IVP SCH (08:06)
--- NOTE | 2018-10-19 09:59 | PDOC.PN ---
- Subjective Encounter Start Date: 10/19/18 Encounter Start Time: 13:45 Subjective: Patient still unresponsive to all stimuli. initially wanted a -: feeding tube put in, but now after considering patient's wishes states -: he wouldn't want anything done, wants to d/c tube and go hospice - Objective Resuscitation Status - Order Detail: 10/16/18 10:05 Resuscitation Status Routine Resuscitation Status: DNAR: NO Resuscitation Discussed with: DANIEL Reviewed: Yes Vital Signs & Weight: Vital Signs (12 hours) Temp Pulse Resp BP Pulse Ox 10/19/18 07:26 99.2 F 87 24 H 162/81 H 100 10/19/18 04:00 97.8 F 84 16 162/78 H 100 10/19/18 00:00 98.5 F 82 16 157/72 H 99 Weight Admit Weight 115 lb Weight 115 lb 14.4 oz Most Recent Monitor Data Heart Rate from ECG 90 NIBP 147/71 NIBP BP-Mean 96 Respiration from ECG 28 SpO2 100 I&O: 10/18/18 10/19/18 10/20/18 06:59 06:59 06:59 Intake Total 3173 2456 Output Total 538 1646 Balance 2635 810 Result Diagrams: 10/19/18 06:02 10/19/18 06:02 Phys Exam - Physical Examination moderate respiratory distress with some Maura-Figueroa breathing HEENT: moist MMs pupils not reactive bilateral coarse breath sounds Cardiovascular: RRR Gastrointestinal: soft no movement of limbs Deviation from normal: unresponsive Dx/Plan (1) PEA (Pulseless electrical activity) Code(s): I46.9 - CARDIAC ARREST, CAUSE UNSPECIFIED Status: Acute (2) Anoxic brain injury Status: Acute (3) Cardiac arrest Code(s): I46.9 - CARDIAC ARREST, CAUSE UNSPECIFIED Status: Acute (4) Acute kidney failure Status: Acute (5) NSTEMI (non-ST elevated myocardial infarction) Code(s): I21.4 - NON-ST ELEVATION (NSTEMI) MYOCARDIAL INFARCTION Status: Acute (6) Shock liver Code(s): K72.00 - ACUTE AND SUBACUTE HEPATIC FAILURE WITHOUT COMA Status: Acute (7) Hypernatremia Code(s): E87.0 - HYPEROSMOLALITY AND HYPERNATREMIA Status: Acute (8) Chronic systolic heart failure, ACC/AHA stage C Code(s): I50.22 - CHRONIC SYSTOLIC (CONGESTIVE) HEART FAILURE Status: Acute (9) HTN (hypertension) Code(s): I10 - ESSENTIAL (PRIMARY) HYPERTENSION Status: Chronic (10) Hyperlipidemia Code(s): E78.5 - HYPERLIPIDEMIA, UNSPECIFIED Status: Chronic (11) Hypothyroidism Code(s): E03.9 - HYPOTHYROIDISM, UNSPECIFIED Status: Chronic (12) Macrocytic anemia Code(s): D53.9 - NUTRITIONAL ANEMIA, UNSPECIFIED Status: Chronic (13) Seizure disorder Code(s): G40.909 - EPILEPSY, UNSP, NOT INTRACTABLE, WITHOUT STATUS EPILEPTICUS Status: Chronic - Plan cont current plan of care Patient terminally extubated, moving patient to comfort care -: only. Hospice consult. D/C to inpatient hospice once arranged. * . - Discharge Day Encounter end time: 14:20
[2018-10-19] MEDS ORDERED: Scopolamine 1.5 mg/72 hour Patch TOP SCH (14:30)
[2018-10-19 15:33] VITALS: BP 163/71; TEMP 99.1
--- NOTE | 2018-10-19 16:58 | PRG ---
DATE OF SERVICE: 10/19/2018 SERVICE: Pulmonary Medicine. INTERVAL HISTORY: The patient is doing fine from a respiratory standpoint. He is breathing comfortably. There has been no interval change to the patient's condition. Otherwise, nursing reports no overnight events. The level of care is being determined by the patient's family at this point. Originally, they wanted a feeding tube, but after reviewing the patient's wishes, I believe that is no longer going to be pursued. PHYSICAL EXAMINATION: VITAL SIGNS: Afebrile, pulse 84, blood pressure 163/71, respirations 18, saturation 100% on room air. GENERAL: The patient is somnolent. HEENT: Normocephalic and atraumatic. Sclerae white. Conjunctivae pink. Oral mucosa is moist without lesions. LUNGS: Decent air entry. Rhonchi are present. No prolonged expiratory phase or wheezing is appreciated. HEART: Normal rate and regular. ABDOMEN: Soft, nontender, and nondistended. Bowel sounds are positive. MUSCULOSKELETAL: No cyanosis or clubbing. There is no pitting in the bilateral lower extremities. LABORATORY DATA: WBC 11.5, hemoglobin 9.1, platelets 91,000 and downtrending. INR 1.6. Creatinine 4.26. Sodium 149. Basic metabolic profile is otherwise unremarkable. ASSESSMENT: 1. PEA arrest, status post prolonged CPR with spontaneous return of circulation. 2. Seizure. 3. Anoxic brain injury. 4. Chronic systolic heart failure. 5. Acute kidney injury. 6. Hypernatremia. 7. Ecg-MA-hwdizbyoi myocardial infarction. DISCUSSION AND PLAN: We will proceed with comfort care only measures. At this point, the patient has no further requirements for inpatient pulmonary critical care opinion, and I will sign off. Please call with additional questions or concerns moving forward. Job ID: [id number]
[2018-10-19] MEDS ORDERED: Piperacillin/Tazobactam 2.25 GM in Sodium Chloride 0.9% 100 ML IVPB SCH (18:00)
== END 2018-10-19 20:53 | disposition hospice, inpatient (51) | DRG 280 ==
LOC: ERS 06:34 → CCU 08:28 → T4-A 10-18 11:35
PROVIDERS: ADMIT Internal Medicine; ATTEND Internal Medicine
PROC: 0BH17EZ Insertion of Endotracheal Airway into Trachea, Via Natural or Artificial Opening (ICD-10-PCS; principal; 2018-10-16)
PROC: 5A1945Z Respiratory Ventilation, 24-96 Consecutive Hours (ICD-10-PCS; 2018-10-16)
PROC: 5A12012 Performance of Cardiac Output, Single, Manual (ICD-10-PCS; 2018-10-16)
PROC: 3E033XZ Introduction of Vasopressor into Peripheral Vein, Percutaneous Approach (ICD-10-PCS; 2018-10-16)
DX: I46.9 Cardiac arrest, cause unspecified (principal); J18.9 Pneumonia, unspecified organism; I21.4 Non-ST elevation (NSTEMI) myocardial infarction; K72.00 Acute and subacute hepatic failure without coma; G93.1 Anoxic brain damage, not elsewhere classified; N17.9 Acute kidney failure, unspecified; E87.0 Hyperosmolality and hypernatremia; I50.22 Chronic systolic (congestive) heart failure; G40.909 Epilepsy, unspecified, not intractable, without status epilepticus; I11.0 Hypertensive heart disease with heart failure; E78.5 Hyperlipidemia, unspecified; E03.9 Hypothyroidism, unspecified; D53.9 Nutritional anemia, unspecified; Z51.5 Encounter for palliative care
CPT/HCPCS: 36415; 70450; 71045; 74018; 80048; 80053; 82550; 82553; 82805; 83690; 83880; 84484; 85025; 85610; 85730; 87086; 93005; 94002; 94003; J1953; J2060; J2270; J2543; J7050; S0028